=== PATIENT | male | born 1995 | race Caucasian/White ===

== ENCOUNTER 2022-04-21 01:04 | Emergency (ER) | payer OTHER ==
[~2022-04-21] VITALS: Ht 180.3 cm; Wt 72.6 kg
[2022-04-21 01:10] VITALS: BP 135/76
[2022-04-21] MEDS ORDERED: IBUPROFEN 400 MG TABLET PO ONE (01:30)
[2022-04-21] MEDS ORDERED: IBUPROFEN 400 MG TABLET ONE (01:36)
--- NOTE | 2022-04-21 01:41 | NUR ---
xray done at bedside.
== END 2022-04-21 01:58 ==
LOC: ER 01:34
DX: S76.112A Strain of left quadriceps muscle, fascia and tendon, initial encounter (principal); X58.XXXA Exposure to other specified factors, initial encounter; Y93.89 Activity, other specified; Y92.89 Other specified places as the place of occurrence of the external cause; Y99.8 Other external cause status
CPT/HCPCS: 73564-TC